=== PATIENT | male | born 1980 | race Hispanic/Latino ===

== ENCOUNTER 2019-09-23 11:27 | Outpatient (CLI) | payer OTHER ==
--- NOTE | 2019-09-23 12:11 | XRay Report ---
LEFT ANKLE, AP AND LATERAL VIEWS INDICATION: L ANKLE PAIN. COMPARISON: No relevant prior imaging study available. FINDINGS: No acute, displaced fracture or dislocation is seen. No radiographic evidence of joint effusion. No focal soft tissue swelling or radiodense foreign bodies. No significant degenerative changes. IMPRESSION: 1. No acute findings. Signer Name: Karthik Graham MD Signed: 09/23/2019 12:07 PM Workstation Name: [id number]
== END 2019-09-23 11:28 | disposition home or self-care (01) ==
LOC: XRAY 11:27
PROVIDERS: ATTEND Internal Medicine
DX: M25.572 Pain in left ankle and joints of left foot (principal)